=== PATIENT | female | born 1975 | race Caucasian/White ===

== ENCOUNTER 2018-08-01 10:38 | Emergency (ER) | payer BC ==
[~2018-08-01] VITALS: Ht 172.7 cm; Wt 77.1 kg
--- NOTE | ~2018-08-01 | EKG ---
[address] [address] ELECTROCARDIOGRAM REPORT Name: SHON WOLF Room #: [facility]#: [id number] Admission: 08/01/18 Attend Phys: Discharge: 08/01/18 Date of : 75 Report #: [id number] THIS REPORT FOR: //name// [facility] ED Test Date: 2018-08-01 Test Time: 10:55:13 Pat Name: SHON WOLF Department: Room: Gender: F [employer] Intern: minal : 1975 Requested By: Luis Fairbanks Order Number: [id number] MD: Pipe Romano Measurements Intervals [place] Rate: 102 P: 63 FL: 129 QRS: 47 QRSD: 98 T: 57 QT: 335 QTc: 437 Interpretive Statements Sinus tachycardia RSR' in V1 or V2, right VCD or RVH Compared to ECG 07/20/2016 11:02:56 Sinus rhythm no longer present Electronically Signed On 08-01-2018 14:48:51 [employer] by Pipe Romano [email or web address] <ELECTRONICALLY SIGNED> By: Pipe Romano MD 08/01/18 1448 1055 1055 Pipe Romano MD /[email or web address]
[~2018-08-01 10:38] MED LIST: ADDERALL 10 MG10 MG PO; AUROGUARD OTIC15 ML OT; NAPROSYN500 MG PO; NORCO 5-325 TA1 EACH PO; PREDNISONE 5 MG5 M1; TRILEPTAL300 MG PO
[2018-08-01] MEDS ORDERED: VENLAFAXINE HC150 M1 PO (10:55)
[2018-08-01] MEDS ORDERED: ZANAFLEX4 MG PO (10:55)
[2018-08-01] MEDS ORDERED: ATIVAN1 MG PO (10:55)
[2018-08-01 13:05] VITALS: BP 110/63
== END 2018-08-01 13:13 | disposition home or self-care (01) ==
LOC: ER 10:38
DX: F41.9 Anxiety disorder, unspecified (principal); M79.10 Myalgia, unspecified site; Z87.891 Personal history of nicotine dependence